=== PATIENT | female | born 1965 | race Hispanic/Latino ===

== ENCOUNTER 2016-11-04 20:34 | Inpatient (IN) | payer MEDICAID, OTHER ==
[~2016-11-04 20:34] MED LIST: Naloxone 0.4 mg/ml Inj (Adult) IVP ONE
[2016-11-04] MEDS ORDERED: Naloxone 0.4 mg/ml Inj (Adult) ONE (20:48)
[2016-11-04] MEDS ORDERED: Sodium Chloride 0.9% 1,000 ML IV ONE ×2 (20:54→22:30)
[2016-11-04 21:00] LABS: DRAW SITE VB; VENOUS BLOOD GAS BASE EXCESS 0.5 mmol/L (0.0-2.0); VENOUS BLOOD GAS PCO2 41 mmHg (40-60)
[2016-11-04] MEDS ORDERED: Sodium Chloride 0.9% 250 ML IV ONE (21:00)
[2016-11-04 21:06] LABS: BASO # 0.1 K/uL (0.0-0.2); EOS % 0.1 % (0.0-4.0); HEMATOCRIT 50.5 % (34.0-47.0); LYMPH # 2.6 K/uL (1.0-4.3); LYMPH % 24.6 % (20.0-40.0); MEAN CELL VOLUME 89.8 fL (81.0-99.0); MEAN CORPUSCULAR HEMOGLOBIN 29.1 pg (27.0-31.0); MEAN CORPUSCULAR HGB CONC 32.4 g/dL (33.0-37.0); MEAN PLATELET VOLUME 7.4 fL (7.2-11.7); MONO % 9.1 % (0.0-10.0); RED CELL DISTRIBUTION WIDTH 17.9 % (11.5-14.5); WHITE BLOOD COUNT 10.7 K/uL (4.8-10.8)
--- NOTE | 2016-11-04 21:16 | C.PDOC ---
History Of Present Illness 53 y/o female presents to ED via ALS for suspected opiate and alcohol overdose. Ambulance was called by her partner, with whom she was drinking alcohol and doing heroin with fentanyl. Patient received multiple large doses of Narcan prior to arrival. As per ALS, patient initially apneic with pinpoint pupils, jones and mottled extremities - patient began vomiting, with more dilated pupils after Narcan given. Chief Complaint (Nursing): Substance Abuse History Per: EMS History/Exam Limitations: clinical condition Onset/Duration Of Symptoms: Unknown Modifying Factor(s): Alcohol, Narcotics Past Medical History Reviewed: Historical Data, Nursing Documentation, Vital Signs Vital Signs: Last Vital Signs Temp 97.8 F 11/04/16 21:23 Pulse 96 H 11/04/16 23:14 Resp 20 11/04/16 23:14 BP 155/89 H 11/04/16 23:14 Pulse Ox 100 11/04/16 23:14 Family History: States: Unknown Family Hx - Social History Hx Alcohol Use: (unknown) Hx Substance Use: (unknown) - Immunization History Hx Tetanus Toxoid Vaccination: No Hx Influenza Vaccination: No Hx Pneumococcal Vaccination: No Review Of Systems Review Of Systems: ROS cannot be obtained secondary to pt's inabilty to answer questions. Physical Exam - Physical Exam Appears: Other (not awake, not responsive to painful stimulus) Skin: Warm, Dry Head: Atraumatic Eye(s): bilateral: Other (midsize, sluggish pupils) Neck: Supple Chest: Symmetrical Cardiovascular: Rhythm Regular Respiratory: Normal Breath Sounds, No Rales, No Rhonchi, No Wheezing Gastrointestinal/Abdominal: Soft, No Tenderness Neurological/Psych: No Response To Commands ED Course And Treatment - Laboratory Results Result Diagrams: 11/04/16 21:10 11/04/16 21:25 Lab Interpretation: Abnormal (ETOH 521 H) ECG: Interpreted By Me ECG Rhythm: Sinus Tachycardia ECG Interpretation: Abnormal Rate From EC O2 Sat by Pulse Oximetry: 100 (RA) Pulse Ox Interpretation: Normal - Radiology CXR: Interpreted by Me CXR Interpretation: Yes: No Acute Disease Progress Note: CT HEAD, EKG, CxR, Labs ordered. IVFs and Narcan 2mg IVP given in ER. Reevaluation Time: 23:59 Reassessment Condition: Improved (awake, alert, gave her name and interacting w staff) - Physician Consult Information Outcome Of Conversation: 0000: d/w Dr. Mckenna, then Dr. Stephens- Hospitalist Medical Charge Entry Specialist- ok to Tele Obs. Critical Care Time - Critical Care Note Total Time (in mins): 90 Documented critical care: time excludes all time spent performing seperately billable procedures. Medical Decision Making Medical Decision Making: accidental heroine and alcohol overdose requiring large dose narcan doses, now stable. pt awake and alert with alcohol level > 500 Disposition Doctor Will See Patient In The: Hospital Counseled Patient/Family Regarding: Studies Performed, Diagnosis - Disposition Disposition: HOSPITALIZED Disposition Time: 00:01 Condition: FAIR - Clinical Impression Clinical Impression: Alcohol abuse, Heroin overdose - Scribe Statement The provider has reviewed the documentation as recorded by the Shaka Simpson Provider Scribe Attestation: All medical record entries made by the Ananthibmerlin were at my direction and personally dictated by me. I have reviewed the chart and agree that the record accurately reflects my personal performance of the history, physical exam, medical decision making, and the department course for this patient. I have also personally directed, reviewed, and agree with the discharge instructions and disposition.
[2016-11-04 21:18] LABS: RBC URINE < 1 /hpf (0-3); URINE BACTERIA FEW (<OCC); URINE BILIRUBIN NEGATIVE (NEGATIVE); URINE BLOOD 2+ (NEGATIVE); URINE COLOR Yellow (YELLOW); URINE GLUCOSE (UA) 1+ mg/dL (Normal); URINE KETONE NEGATIVE (NEGATIVE); URINE LEUKOCYTE ESTERASE NEG Leu/uL (Negative); URINE PROTEIN 2+ mg/dL (NEGATIVE); URINE UROBILINOGEN NORMAL mg/dL (0.2-1.0); WBC URINE 3 /hpf (0-5)
[2016-11-04 21:56] LABS: CHLORIDE 100 mmol/L (98-107); POTASSIUM 3.9 mmol/L (3.6-5.2); SODIUM 142 mmol/L (132-148)
[2016-11-04 21:58] LABS: GFR AFRICAN-AMERICAN > 60
[2016-11-04 21:59] LABS: ALB/GLOB RATIO 1.3 (1.0-2.1); ALKALINE PHOSPHATASE 63 U/L (38-126); ALT/SGPT 94 U/L (9-52); AST/SGOT 121 U/L (14-36); BILIRUBIN,TOTAL 0.5 mg/dL (0.2-1.3); BLOOD UREA NITROGEN 11 mg/dL (7-17); CALCIUM 8.2 mg/dl (8.6-10.4); CARBON DIOXIDE 26 mmol/L (22-30); GLUCOSE,RANDOM 136 mg/dL (65-105); TOTAL PROTEIN 7.4 g/dL (6.3-8.3)
[2016-11-04 22:15] LABS: ALCOHOL SERUM 521 mg/dl (0-10)
[2016-11-04] MEDS ORDERED: Sodium Chloride 0.9% 1,000 ML ONE (22:28)
[2016-11-04 23:38] LABS: ABG ALLEN TEST POS; DRAW SITE RR
--- NOTE | 2016-11-05 00:56 | CP.PCM.HP ---
Addendum entered and electronically signed by Prosper Covarrubias DO 11/05/16 02:21: CT HEAD: no evidence of hemorrhage, mass effect, or subacute infarction (wet read, f/u official read) Original Note: <Prosper Covarrubias - Last Filed: 11/05/16 02:17> History of Present Illness - History of Present Illness History of Present Illness: HPI: The patient is a 51 y/o female w/ PMhx of hypertension presenting to the ED w/ heroin overdose. The patient was snorting heroin and drinking beer with her partner when she overdosed. Her partner called 911 and the ambulance transported her to [facility] ED. She was apneic, had pinpoint pupils, and jones- mottled extremities initially in the ED. She received multiples large doses of naloxone and 2L of NS. After administration of naloxone, she began vomiting and her pupils dilated. Currently the patient is agitated, anxious, and diaphoretic ; she is asking for methadone. On review of systems, the patient reports diaphoresis, a racing heart, and anxiety. She denies fever/chills, headaches, vision/hearing changes, sore throat, dysphagia, chest pain, shortness of breath , cough, abdominal pain, nausea, and vomiting. Head CT and CXR are pending. PMHx: hypertension PSHx: denies FamHx: denies SocHx: The patient reports that she smokes about 5 cigarettes/day. She also drinks approximately 4 twelve oz beers/day, for the last 5 years. She admits to heroin use of 6 months duration, with the last use being earlier today. Typically she uses 4 bags of heroin/day. Method of administration is snorting. She denies IVDA. Pt denies previous rehab. Allergies: no known drug allergies Present on Admission - Present on Admission Any Indicators Present on Admission: No Review of Systems - Review of Systems Systems not reviewed;Unavailable: Intoxicated - Constitutional Constitutional: absent: Chills, Fever - EENT Eyes: absent: Change in Vision Ears: absent: Decreased Hearing Nose/Mouth/Throat: Nasal Discharge. absent: Sore Throat - Cardiovascular Cardiovascular: absent: Chest Pain, Chest Pain at Rest, Dyspnea, Dyspnea on Exertion, Edema - Respiratory Respiratory: absent: Cough, Dyspnea - Gastrointestinal Gastrointestinal: Nausea, Vomiting. absent: Abdominal Pain - Genitourinary Genitourinary: absent: Dysuria - Musculoskeletal Musculoskeletal: Back Pain Additional comments: Body aches (whole body is in pain) - Integumentary Integumentary: Other (feels crawling sensation/parsthesias on skin) - Neurological Neurological: absent: Numbness, Headaches, Weakness - Psychiatric Psychiatric: Anxiety. absent: Depression - Endocrine Endocrine: absent: Polydipsia, Polyphagia, Polyuria Past Patient History - Infectious Disease Hx of Infectious Diseases: None - Past Social History Smoking Status: Unknown If Ever Smoked - PSYCHIATRIC Hx Substance Use: (unknown) - ANESTHESIA Hx Anesthesia: No Meds Allergies/Adverse Reactions: Allergies Allergy/AdvReac Type Severity Reaction Status Date / Time No Known Allergies Allergy Unverified 11/05/16 04:36 Physical Exam - Constitutional Appears: Older Than Stated Age - Head Exam Head Exam: ATRAUMATIC, NORMOCEPHALIC - Eye Exam Eye Exam: PERRL Additional comments: dilated pupils - ENT Exam ENT Exam: Mucous Membranes Dry - Respiratory Exam Respiratory Exam: Clear to Auscultation Bilateral, NORMAL BREATHING PATTERN. absent: Rales, Rhonchi, Wheezes - Cardiovascular Exam Cardiovascular Exam: Tachycardia, +S1, +S2 - GI/Abdominal Exam GI & Abdominal Exam: Normal Bowel Sounds, Soft. absent: Tenderness - Extremities Exam Extremities exam: Negative for: pedal edema - Back Exam Back exam: absent: CVA tenderness (L), CVA tenderness (R) - Neurological Exam Neurological exam: Alert, Oriented x3 - Psychiatric Exam Psychiatric exam: Anxious - Skin Skin Exam: Dry, Normal Color, Warm Additional comments: no track quevedo or injection sites noted Results - Vital Signs Recent Vital Signs: Last Vital Signs Temp 97.8 F 11/04/16 21:23 Pulse 96 H 11/04/16 23:14 Resp 20 11/04/16 23:14 BP 155/89 H 11/04/16 23:14 Pulse Ox 100 11/05/16 00:01 - Labs Result Diagrams: 11/04/16 21:10 11/04/16 21:25 Assessment & Plan - Assessment and Plan (Free Text) Assessment: 51 year old female, PMHx of HTN, who presents unresponsive after heroin/ fentanyl and alcohol use. Pt responded after administration of Narcan. She is requesting detox. Plan: AMS unresponsive on admission Administer Narcan and pt responsive f/u CT Head f/u CXR EtOH Use disorder, severe EtOH level on presentation: 521 pt admits 4-8 12oz beers daily, + "whatever vodka I can get" Seizure precautions Aspiration/Fall precautions Alcohol W/D assessments Q1H Neuro Check Q4H Banana Bag @ 100cc/hr Zofran 4mg IV Q6H PRN Opioid Use Disorder, Severe Unresponsive on presentation Administer Narcan and pt responsive 4-5 bags per day of heroin (snorting, deny IVDA) mixed with fentanyl Pt requesting detox Psych consult: Dr. León, help appreciated - f/u reccs Tobacco use disorder 4-6 cigarettes per day pt refusing patch HTN pt denies home medications Apresoline 10mg given once in ED Monitor Transaminitis Secondary to alcohol use AST/ALT 121/94 Monitor Abnormal UA UA (11/04/16): Blood 2+, Protein 2+, Le negative, Nitrate positive Will repeat Prophylaxis VTE: SCDs, Heparin 5000 units Q12H GI: Protonix 40mg IV daily Heart Healthy diet <Tate Stephens - Last Filed: 11/05/16 06:32> Results - Vital Signs Recent Vital Signs: Last Vital Signs Temp 98.2 F 11/05/16 05:41 Pulse 110 H 11/05/16 06:15 Resp 21 11/05/16 06:15 BP 147/96 H 11/05/16 06:15 Pulse Ox 99 11/05/16 06:15 - Labs Result Diagrams: 11/05/16 04:52 11/05/16 04:52 Labs: Laboratory Results - last 24 hr 11/05/16 11/05/16 04:52 04:52 WBC 11.4 H RBC 5.09 Hgb 14.9 Hct 45.2 MCV 88.9 MCH 29.2 MCHC 32.9 L RDW 17.6 H Plt Count 323 MPV 7.3 Neut % (Auto) 77.4 H Lymph % (Auto) 15.6 L [place] % (Auto) 6.5 Eos % (Auto) 0.0 Baso % (Auto) 0.5 Neut # 8.8 H Lymph # 1.8 [place] # 0.7 Eos # 0.0 Baso # 0.1 Sodium 141 Potassium 4.0 Chloride 103 Carbon Dioxide 28 Anion Gap 15 BUN 10 Creatinine 0.6 L Est GFR ( Amer) > 60 Est GFR (Non-Af Amer) > 60 Random Glucose 167 H Calcium 7.8 L Phosphorus 3.5 Magnesium 1.8 Total Bilirubin 0.4 AST 76 H D ALT 86 H Alkaline Phosphatase 55 Total Protein 6.6 Albumin 3.8 Globulin 2.8 Albumin/Globulin Ratio 1.3 Assessment & Plan - Date & Time Date: 11/05/16 (I have seen and examined the patient. I agree with the findings and plan of care as documented by Dr. Covarrubias. Patient with acute change in mental status. Abuse of alcohol and opiates. Received Narcan in ED. Mental status improved. Consult to psych. CIWA protocol. Plan to start methadone. No withdrawal symptoms present. Monitor for acute changes.) Time: 06:30 Attending/Attestation - Attestation I have personally seen and examined this patient.: Yes I have fully participated in the care of the patient.: Yes I have reviewed all pertinent clinical information: Yes
[2016-11-05] MEDS ORDERED: Multivitamin (MVI) 10 ML, Thiamine 100 MG, Folic Acid 1 MG in Sodium Chloride 0.9% 1,00... IV ONE ×2 (01:43→21:48)
[2016-11-05 05:01] LABS: BASO # 0.1 K/uL (0.0-0.2); BASO % 0.5 % (0.0-2.0); HEMATOCRIT 45.2 % (34.0-47.0); LYMPH # 1.8 K/uL (1.0-4.3); LYMPH % 15.6 % (20.0-40.0); MEAN CELL VOLUME 88.9 fL (81.0-99.0); MEAN CORPUSCULAR HEMOGLOBIN 29.2 pg (27.0-31.0); MEAN CORPUSCULAR HGB CONC 32.9 g/dL (33.0-37.0); MEAN PLATELET VOLUME 7.3 fL (7.2-11.7); MONO # 0.7 K/uL (0.0-0.8); MONO % 6.5 % (0.0-10.0); RED CELL DISTRIBUTION WIDTH 17.6 % (11.5-14.5); WHITE BLOOD COUNT 11.4 K/uL (4.8-10.8)
[2016-11-05 05:17] LABS: CHLORIDE 103 mmol/L (98-107); SODIUM 141 mmol/L (132-148)
[2016-11-05 05:19] LABS: AST/SGOT 76 U/L (14-36); BILIRUBIN,TOTAL 0.4 mg/dL (0.2-1.3); GFR AFRICAN-AMERICAN > 60
[2016-11-05 05:20] LABS: ALB/GLOB RATIO 1.3 (1.0-2.1); ALKALINE PHOSPHATASE 55 U/L (38-126); ALT/SGPT 86 U/L (9-52); BLOOD UREA NITROGEN 10 mg/dL (7-17); CALCIUM 7.8 mg/dl (8.6-10.4); CARBON DIOXIDE 28 mmol/L (22-30); GLUCOSE,RANDOM 167 mg/dL (65-105); PHOSPHOROUS 3.5 mg/dL (2.5-4.5); TOTAL PROTEIN 6.6 g/dL (6.3-8.3)
[2016-11-05 05:21] LABS: MAGNESIUM 1.8 mg/dL (1.6-2.3)
--- NOTE | 2016-11-05 08:21 | CT ---
PROCEDURE: CT HEAD WITHOUT CONTRAST. HISTORY: change of mental status COMPARISON: None available. TECHNIQUE: Axial computed tomography images were obtained through the head/brain without intravenous contrast. Radiation dose: Total exam DLP = 740 mGy-cm. This CT exam was performed using one or more of the following dose reduction techniques: Automated exposure control, adjustment of the mA and/or kV according to patient size, and/or use of iterative reconstruction technique. FINDINGS: HEMORRHAGE: No intracranial hemorrhage. BRAIN: Scattered focal lucencies in the subcortical and periventricular white matter suggestive for chronic microvascular ischemic change. Mild atrophy. VENTRICLES: Unremarkable. No hydrocephalus. CALVARIUM: Unremarkable. PARANASAL SINUSES: Unremarkable as visualized. No significant inflammatory changes. MASTOID AIR CELLS: Unremarkable as visualized. No inflammatory changes. OTHER FINDINGS: Atherosclerosis of the vertebral arteries and cavernous carotid arteries. IMPRESSION: Mild atrophy. Chronic microvascular ischemic change. Atherosclerosis of the vertebral arteries and cavernous carotid arteries. If focal neurologic deficit persists, consider MRI. These findings were preliminarily reported at 12:26 a.m. on 11/05/[address] Laurence Boone from [facility].
--- NOTE | 2016-11-05 09:32 | RAD ---
HISTORY: change of mental status COMPARISON: No prior. FINDINGS: LUNGS: No active pulmonary disease. PLEURA: No significant pleural effusion identified, no pneumothorax apparent. CARDIOVASCULAR: Normal. OSSEOUS STRUCTURES: No significant abnormalities. VISUALIZED UPPER ABDOMEN: Normal. OTHER FINDINGS: None. IMPRESSION: No active disease.
--- NOTE | 2016-11-05 17:11 | PCM.PSYCH ---
Initial Psychiatric Evaluation - Initial Psychiatric Evaluation Type of Admission: Voluntary Legal Status: Capacity Chief Complaint (in patient's own words): I came here to get help. History of Present Illness and Precipitating Events: This is a 51-year-old female who is lives with her boyfriend and unemployed with a long history of alcohol dependence, opioid dependence and anxiety disorder was admitted in the ICU because of a suspected overdose. Today patient was consulted because of history of alcohol and opiate overdose. Patient states a long history of drinking and abusing opiate pain medications. Since past few months she is drinking heavily and sniffing increasing amount of heroin. The patient reports of drinking 5-6 shots of vodka and 4-5 24oz beers, on a daily basis. Yesterday she consumed 4 pints of vodka, with 5 24oz beers, and abused 6 bags of heroin, became unconscious, boyfriend called the ambulance and patient was escorted to the hospital. Patient was given naloxone and was admitted in the ICU. Today patient reports of withdrawal symptoms including shakes, sweating, anxiety and headaches. Patient reports anxiety and irritable mood but denies any feelings of hopelessness or helplessness. She reports that she overdosed accidentally on heroin and denies any suicidal ideation or any attempt. She denies any auditory or visual hallucinations or any psychotic symptoms. She denies any other substance abuse. Past medical history Hypertension Current Medications: Active Medications Generic Name Dose Route Start Last Admin Trade Name Freq PRN Reason Stop Dose Admin Chlordiazepoxide 25 mg 11/05/16 12:00 11/05/16 12:34 Librium PO 11/09/16 11:59 25 mg Q6 TAMICA Administration Taper Clonidine HCl 0.1 mg 11/05/16 14:00 11/05/16 16:59 Catapres PO 0.1 mg TID TAMICA Administration Heparin Sodium (Porcine) 5,000 units 11/05/16 10:00 11/05/16 09:09 Heparin SC 5,000 units Q12H TAMICA Administration Lorazepam 1 mg 11/05/16 01:43 11/05/16 16:59 Ativan IVP 1 mg Q4H PRN Administration Symptoms of alcohol withdrawl Nicotine 1 patch 11/05/16 13:15 11/05/16 14:19 Nicoderm Cq TD 1 patch DAILY TAMICA Administration Pantoprazole Sodium 40 mg 11/05/16 10:00 11/05/16 09:09 Protonix Inj IVP 40 mg DAILY TAMICA Administration Pneumococcal Polyvalent Vaccine 0.5 ml 11/07/16 11:18 Pneumovax 23 Vaccine IM 11/07/16 11:19 .ONCE ONE Past Psychiatric History - Past Psychiatric History Previous Treatment History: None Pertinent Medical Hx (Current Medical&Sleep Prob, Allergies): Allergies Allergy/AdvReac Type Severity Reaction Status Date / Time No Known Allergies Allergy Unverified 11/05/16 04:36 Methadone [Methadone HCl] 20 mg PO DAILY 11/05/16 Review of Systems - Review of Systems All systems: reviewed and no additional remarkable complaints except - Psychiatric Psychiatric: Anxiety, Irritability Mental Status Examination - Personal Presentation Personal Presentation: Looks stated age - Affect Affect: Constricted - Motor Activity Motor Activity: Calm - Reliability in Providing Information Reliability in Providing Information: Good - Speech Speech: Organized - Mood Mood: Anxious - Formal Thought Process Formal Thought Process: No Impairment - Obsessions/Compulsions Obsessions: No Compulsions: No - Cognitive Functions Orientation: Person, Place, Situation, Time Sensorium: Alert Attention/Concentration: Attentive Abstract Thinking: [place] Estimate of Intelligence: Below average Judgement: Imparied, as evidence by: Poor judgement, Intact, as evidence by: Insight regarding need for hospitalization - Risk Risk: Withdrawal, Diminished functioning - Strength & Assets Inventory Strength & Assets Inventory: Family support, Cooperative DSM 5 DX - DSM 5 DSM 5 Diagnosis: Opiate use disorder severe Opiate withdrawal Alcohol use disorder severe Alcohol withdrawal uncomplicated Anxiety disorder - Recommended/Plan of Treatment Treatment Recommendations and Plan of Treatment: Alcohol use disorder severe CBT Psychoeducation Supportive therapy, individual therapy Use [place] for abstinence Alcohol withdrawal uncomplicated CBT Psychoeducation Supportive therapy, individual therapy Librium/Ativan when necessary Librium taper Folic acid/thiamine/multivitamin Opioid use disorder severe CBT Psychoeducation Supportive therapy, individual therapy Use [place] for abstinence Opioid withdrawal CBT Psychoeducation Supportive therapy, individual therapy Clonidine when necessary Methadone taper Anxiety disorder CBT Psychoeducation Supportive therapy, group therapy, individual therapy Neurontin 100 mg by mouth 3 times a day - Smoking Cessation Smoking Cessation Initiated: No
--- NOTE | 2016-11-05 22:07 | CP.PCM.PN ---
<MatthiashanJad - Last Filed: 11/06/16 08:58> Subjective - Date & Time of Evaluation Date of Evaluation: 11/05/16 Time of Evaluation: 10:54 - Subjective Subjective: Pt seen and examined. Pt reported that she is feeling better today. Pt reports slight abdominal pain. Pt tolerating diet. Pt denies any fever, chills, chest pain, shortness of breath. Objective - Vital Signs/Intake and Output Vital Signs (last 24 hours): Temp Pulse Resp BP Pulse Ox 98.2 F 114 H 14 177/83 H 99 11/05/16 09:06 11/05/16 09:06 11/05/16 09:06 11/05/16 09:06 11/05/16 09:06 - Medications Medications: Current Medications Chlordiazepoxide (Librium) 25 mg PO Q6 [facility] PRN Reason: Taper Stop: 11/09/16 11:59 Last Admin: 11/05/16 18:08 Dose: 25 mg Clonidine HCl (Catapres) 0.1 mg PO TID [facility] Last Admin: 11/05/16 16:59 Dose: 0.1 mg Heparin Sodium (Porcine) (Heparin) 5,000 units SC Q12H TAMICA Last Admin: 11/05/16 21:28 Dose: 5,000 units Multivitamins/Vitamin C 10 ml/Thiamine HCl 100 mg/ Folic Acid 1 mg/ Sodium Chloride 1,011.2 mls @ 100 mls/hr IV .Q10H7M ONE Stop: 11/06/16 07:54 Lorazepam (Ativan) 1 mg IVP Q4H PRN PRN Reason: Symptoms of alcohol withdrawl Last Admin: 11/05/16 21:27 Dose: 1 mg Methadone HCl (Methadone) 0 mg PO DAILY [facility] PRN Reason: Taper Stop: 11/09/16 09:59 Nicotine (Nicoderm Cq) 1 patch TD DAILY [facility] Last Admin: 11/05/16 14:19 Dose: 1 patch Pantoprazole Sodium (Protonix Inj) 40 mg IVP DAILY [facility] Last Admin: 11/05/16 09:09 Dose: 40 mg Pneumococcal Polyvalent Vaccine (Pneumovax 23 Vaccine) 0.5 ml IM .ONCE ONE Stop: 11/07/16 11:19 - Labs Labs: 11/05/16 04:52 11/05/16 04:52 - Constitutional Appears: No Acute Distress, Unkempt - Head Exam Head Exam: ATRAUMATIC, NORMOCEPHALIC - Eye Exam Eye Exam: EOMI, PERRL - ENT Exam ENT Exam: Mucous Membranes Moist. absent: Mucous Membranes Dry - Respiratory Exam Respiratory Exam: Clear to Ausculation Bilateral. absent: Rales, Rhonchi, Wheezes - Cardiovascular Exam Cardiovascular Exam: +S1, +S2 - GI/Abdominal Exam GI & Abdominal Exam: Soft. absent: Tenderness - Extremities Exam Extremities Exam: Full ROM. absent: Pedal Edema - Neurological Exam Neurological Exam: Alert, Awake, Oriented x3 - Psychiatric Exam Psychiatric exam: Normal Affect, Normal Mood - Skin Skin Exam: Normal Color, Warm Assessment and Plan - Assessment and Plan (Free Text) Assessment: Alcohol Use Disorder and Withdrawal Serum alcohol, 521 Librium taper Ativan 1 mg IV q4h prn for withdrawal symptoms Seizure precautions Aspiration/Fall precautions Alcohol W/D assessments Q1H Neuro Check Q4H Banana Bag IVF 100cc/hr Zofran 4mg IV Q6H PRN Psych, Dr. Boo, consulted. Help appreciated. Opioid Use Disorder and Withdrawal Psych, Dr. Boo, consulted. Help appreciated. Methadone taper as per psych HTN: Clonidine 0.1 mg po tid Transaminitis Secondary to alcohol use AST/ALT 121/94 Monitor Abnormal UA U/A: positive for nitrates, bacteria Prophylaxis DVT: SCDs, Heparin 5000 units Q12H GI: Protonix 40mg IV daily Nicotine patch <Colton Abbasi - Last Filed: 12/10/16 16:32> Objective - Vital Signs/Intake and Output Vital Signs (last 24 hours): Temp Pulse Resp BP Pulse Ox 97.6 F 73 18 120/80 98 11/09/16 09:27 11/09/16 09:27 11/09/16 09:27 11/09/16 09:27 11/06/16 16:00 - Labs Labs: 11/09/16 12:08 11/09/16 12:08 Attending/Attestation - Attestation I have personally seen and examined this patient.: Yes I have fully participated in the care of the patient.: Yes I have reviewed all pertinent clinical information, including history, physical exam and plan: Yes Notes (Text): Patient Seen and examined with the resident. Agree with the resident's evaluation, assessment and plan. Alcohol Use Disorder and Withdrawal Serum alcohol, 521 Librium taper Ativan 1 mg IV q4h prn for withdrawal symptoms Seizure precautions Aspiration/Fall precautions Alcohol W/D assessments Q1H Neuro Check Q4H Banana Bag IVF 100cc/hr Zofran 4mg IV Q6H PRN Psych, Dr. Boo, consulted. Help appreciated. Opioid Use Disorder and Withdrawal Psych, Dr. Boo, consulted. Help appreciated. Methadone taper as per psych HTN: Clonidine 0.1 mg po tid
--- NOTE | 2016-11-05 23:32 | CARD ---
APPROVED REPORT EKG Measurement Heart [id number] <Conclusion> Poor data quality, interpretation may be adversely affected Sinus tachycardia Possible Left atrial enlargement Anteroseptal infarct, age undetermined Abnormal ECG
[2016-11-06 06:57] LABS: CHLORIDE 103 mmol/L (98-107); POTASSIUM 3.7 mmol/L (3.6-5.2); SODIUM 136 mmol/L (132-148)
[2016-11-06 06:59] LABS: BILIRUBIN,TOTAL 0.7 mg/dL (0.2-1.3); CARBON DIOXIDE 28 mmol/L (22-30); GFR AFRICAN-AMERICAN > 60
[2016-11-06 07:00] LABS: ALB/GLOB RATIO 1.1 (1.0-2.1); ALKALINE PHOSPHATASE 41 U/L (38-126); ALT/SGPT 55 U/L (9-52); AST/SGOT 51 U/L (14-36); BLOOD UREA NITROGEN 9 mg/dL (7-17); CALCIUM 7.2 mg/dl (8.6-10.4); GLUCOSE,RANDOM 68 mg/dL (65-105); MAGNESIUM 1.9 mg/dL (1.6-2.3); PHOSPHOROUS 3.3 mg/dL (2.5-4.5); TOTAL PROTEIN 5.5 g/dL (6.3-8.3)
[2016-11-06 07:07] LABS: BASO % 0.4 % (0.0-2.0); EOS # 0.1 K/uL (0.0-0.7); LYMPH # 2.1 K/uL (1.0-4.3); NRBC % 0.1 % (0.0-2.0)
[2016-11-06 07:23] LABS: EOS % 1.7 % (0.0-4.0); HEMATOCRIT 34.2 % (34.0-47.0); LYMPH % 29.1 % (20.0-40.0); MEAN CELL VOLUME 89.6 fL (81.0-99.0); MEAN CORPUSCULAR HEMOGLOBIN 29.1 pg (27.0-31.0); MEAN CORPUSCULAR HGB CONC 32.4 g/dL (33.0-37.0); MEAN PLATELET VOLUME 8.1 fL (7.2-11.7); MONO # 0.5 K/uL (0.0-0.8); MONO % 6.6 % (0.0-10.0); RED CELL DISTRIBUTION WIDTH 16.9 % (11.5-14.5); WHITE BLOOD COUNT 7.2 K/uL (4.8-10.8)
--- NOTE | 2016-11-06 11:16 | PCM.PYCHPN ---
Psychiatric Progress Note - Psychiatric Progress Note Patient seen today, length of contact: 17 min Patient Chief Complaint: I came here to get help. Problems Identified/Issues Discussed: Patient seen and evaluated, chart reviewed and discussed with the nurse. As per the staff, patient still appears isolated, anxious and withdrawn. Patient still reports anxiety and reports withdrawal symptoms including cramps, back pain and sweating. However she denies any suicidal ideation or homicidal ideation. She denies any auditory or visual hallucinations or any psychotic symptoms. Supportive therapy and psychoeducation were given. Medication Change: Yes (Methadone taper) Medical Record Reviewed: Yes Mental Status Examination - Cognitive Function Orientation: Person, Place, Situation, Time Memory: Intact Attention: WNL Concentration: Poor Association: WNL Fund of Knowledge: Poor - Mood Mood: Anxious - Affect Affect: Constricted - Speech Speech: Soft - Formal Thought Process Formal Thought Process: No Impairment - Suicidal Ideation Suicidal Ideation: No - Homicidal Ideation Homicidal Ideation: No Goal/Treatment Plan - Goal/Treatment Plan Need for Continued Stay: Discharge may exacerbated symptoms, Severe functional impairment, Other Progress Toward Problem(s) and Goals/Treatment Plan: Alcohol use disorder severe CBT Psychoeducation Supportive therapy, individual therapy Use [place] for abstinence Alcohol withdrawal uncomplicated CBT Psychoeducation Supportive therapy, individual therapy Librium/Ativan when necessary Librium taper Folic acid/thiamine/multivitamin Opioid use disorder severe CBT Psychoeducation Supportive therapy, individual therapy Use [place] for abstinence Opioid withdrawal CBT Psychoeducation Supportive therapy, individual therapy Clonidine when necessary Methadone taper Anxiety disorder CBT Psychoeducation Supportive therapy, group therapy, individual therapy Neurontin 100 mg by mouth 3 times a day - Smoking Cessation Smoking Cessation Initiated: No
--- NOTE | 2016-11-06 17:13 | CP.PCM.PN ---
<Zeb Lovekan - Last Filed: 11/13/16 10:27> Subjective - Date & Time of Evaluation Date of Evaluation: 11/05/16 Time of Evaluation: 07:44 - Subjective Subjective: Pt seen and examined. Pt reports that her withdrawal symptoms have subsided. Pt reports minor mouth pain. Pt denies fever, chills, chest pain, shortness of breath, nausea, and vomiting. Objective - Vital Signs/Intake and Output Vital Signs (last 24 hours): Temp Pulse Resp BP Pulse Ox 98.7 F 78 15 108/61 99 11/05/16 16:00 11/06/16 03:00 11/05/16 23:00 11/05/16 23:00 11/05/16 23:00 - Medications Medications: Current Medications Chlordiazepoxide (Librium) 25 mg PO TID [facility] PRN Reason: Taper Stop: 11/09/16 11:59 Last Admin: 11/06/16 14:56 Dose: 25 mg Clonidine HCl (Catapres) 0.1 mg PO TID [facility] Last Admin: 11/06/16 14:56 Dose: 0.1 mg Heparin Sodium (Porcine) (Heparin) 5,000 units SC Q12H [facility] Last Admin: 11/06/16 10:22 Dose: 5,000 units Ibuprofen (Motrin Tab) 600 mg PO TID PRN PRN Reason: Pain, moderate (4-7) Last Admin: 11/06/16 14:57 Dose: 600 mg Lidocaine HCl (Lidocaine 2% Viscous) 15 ml PO Q6H PRN PRN Reason: toothache Lorazepam (Ativan) 1 mg IVP Q4H PRN PRN Reason: Symptoms of alcohol withdrawl Last Admin: 11/06/16 13:46 Dose: 1 mg Methadone HCl (Methadone) 15 mg PO DAILY [facility] PRN Reason: Taper Stop: 11/09/16 09:59 Last Admin: 11/06/16 10:21 Dose: 15 mg Nicotine (Nicoderm Cq) 1 patch TD DAILY [facility] Last Admin: 11/06/16 10:22 Dose: 1 patch Pantoprazole Sodium (Protonix Inj) 40 mg IVP DAILY [facility] Last Admin: 11/06/16 10:21 Dose: 40 mg Pneumococcal Polyvalent Vaccine (Pneumovax 23 Vaccine) 0.5 ml IM .ONCE ONE Stop: 11/07/16 11:19 - Constitutional Appears: No Acute Distress - Head Exam Head Exam: ATRAUMATIC, NORMOCEPHALIC - Eye Exam Eye Exam: EOMI - ENT Exam ENT Exam: Mucous Membranes Moist. absent: Mucous Membranes Dry - Respiratory Exam Respiratory Exam: Clear to Ausculation Bilateral. absent: Rales, Rhonchi, Wheezes - Cardiovascular Exam Cardiovascular Exam: +S1, +S2. absent: Gallop, Rubs - GI/Abdominal Exam GI & Abdominal Exam: Soft, Normal Bowel Sounds. absent: Distended, Tenderness - Extremities Exam Extremities Exam: Full ROM. absent: Pedal Edema - Neurological Exam Neurological Exam: Alert, Awake, Oriented x3 - Psychiatric Exam Psychiatric exam: Normal Affect, Normal Mood - Skin Skin Exam: Normal Color, Warm Assessment and Plan - Assessment and Plan (Free Text) Assessment: Alcohol Use Disorder and Withdrawal Serum alcohol, 521 Librium taper Ativan 1 mg IV q4h prn for withdrawal symptoms Seizure precautions Aspiration/Fall precautions Alcohol W/D assessments Q1H Neuro Check Q4H Zofran 4mg IV Q6H PRN Psych, Dr. Boo, consulted. Help appreciated. Opioid Use Disorder and Withdrawal Psych, Dr. Boo, consulted. Help appreciated. Methadone taper as per psych Tooth Abscess: Augmentin 875/125 mg po bid Follow up with dentist recommended HTN: Clonidine 0.1 mg po tid Transaminitis Secondary to alcohol use AST/ALT 121/94 Monitor Abnormal UA U/A: positive for nitrates, bacteria Prophylaxis DVT: SCDs, Heparin 5000 units Q12H GI: Protonix 40mg IV daily Nicotine patch <Colton Abbasi - Last Filed: 12/16/16 11:24> Objective - Vital Signs/Intake and Output Vital Signs (last 24 hours): Temp Pulse Resp BP Pulse Ox 97.6 F 73 18 120/80 98 11/09/16 09:27 11/09/16 09:27 11/09/16 09:27 11/09/16 09:27 11/06/16 16:00 - Labs Labs: 11/09/16 12:08 11/09/16 12:08 Attending/Attestation - Attestation I have personally seen and examined this patient.: Yes I have fully participated in the care of the patient.: Yes I have reviewed all pertinent clinical information, including history, physical exam and plan: Yes Notes (Text): Patient seen and examined with the resident. Agree with the resident's evaluation, assessment and plan. Alcohol Use Disorder and Withdrawal Opioid Use Disorder and Withdrawal Tooth Abscess: Augmentin 875/125 mg po bid Follow up with dentist strongly recommended Patient agrees to do so as outpatient. HTN:
[2016-11-06 17:38] VITALS: O2SAT 98
[2016-11-07] MEDS: Pantoprazole 40 mg EC Tab PO SCH (09:38)
--- NOTE | 2016-11-07 10:00 | PCM.PYCHPN ---
Psychiatric Progress Note - Psychiatric Progress Note Patient seen today, length of contact: 15 min Patient Chief Complaint: I'm still having withdrawal symptoms Problems Identified/Issues Discussed: Patient seen and evaluated, chart reviewed and discussed with the nurse. Patient was transferred to the psych floor. Patient still reports anxiety and irritability. She is also reporting withdrawal symptoms including nausea, cramps , back pain and joint pains. However she denies any suicidal ideation or homicidal ideation. She is reporting drowsiness from Neurontin and requesting to change the medication Supportive therapy and psychoeducation were given. Medication Change: Yes (start seroquel, DC Neurontin) Medical Record Reviewed: Yes Mental Status Examination - Cognitive Function Orientation: Person, Place, Situation, Time Memory: Intact Attention: WNL Concentration: Poor Association: WNL Fund of Knowledge: Poor - Mood Mood: Anxious - Affect Affect: Constricted - Speech Speech: Soft - Formal Thought Process Formal Thought Process: No Impairment - Suicidal Ideation Suicidal Ideation: No - Homicidal Ideation Homicidal Ideation: No Goal/Treatment Plan - Goal/Treatment Plan Need for Continued Stay: Discharge may exacerbated symptoms, Severe functional impairment Progress Toward Problem(s) and Goals/Treatment Plan: Anxiety disorder CBT Psychoeducation Supportive therapy, group therapy, individual therapy Discontinue Neurontin 100 mg by mouth 3 times a day Start Seroquel 50 mg PO QHS Alcohol use disorder severe CBT Psychoeducation Supportive therapy, individual therapy Use [place] for abstinence Alcohol withdrawal uncomplicated CBT Psychoeducation Supportive therapy, individual therapy Librium/Ativan when necessary Librium taper Folic acid/thiamine/multivitamin Opioid use disorder severe CBT Psychoeducation Supportive therapy, individual therapy Use [place] for abstinence Opioid withdrawal CBT Psychoeducation Supportive therapy, individual therapy Clonidine when necessary Methadone taper - Smoking Cessation Smoking Cessation Initiated: No
[2016-11-07] MEDS: Amoxicillin-Clav 500-125 mg Tab PO SCH ×2 (10:20→21:07)
[2016-11-07] MEDS ORDERED: Pneumococcal 23-Valent Vaccine IM ONE (11:18)
[2016-11-07 14:04] LABS: BASO % 0.5 % (0.0-2.0); EOS # 0.4 K/uL (0.0-0.7); EOS % 4.6 % (0.0-4.0); HEMATOCRIT 34.6 % (34.0-47.0); LYMPH # 2.4 K/uL (1.0-4.3); LYMPH % 27.4 % (20.0-40.0); MEAN CORPUSCULAR HEMOGLOBIN 29.3 pg (27.0-31.0); MEAN CORPUSCULAR HGB CONC 32.9 g/dL (33.0-37.0); MEAN PLATELET VOLUME 8.4 fL (7.2-11.7); MONO # 0.5 K/uL (0.0-0.8); MONO % 5.2 % (0.0-10.0); WHITE BLOOD COUNT 8.9 K/uL (4.8-10.8)
[2016-11-07 14:13] LABS: CHLORIDE 94 mmol/L (98-107); POTASSIUM 4.4 mmol/L (3.6-5.2); SODIUM 133 mmol/L (132-148)
[2016-11-07 14:15] LABS: ALB/GLOB RATIO 1.5 (1.0-2.1); ALKALINE PHOSPHATASE 49 U/L (38-126); AST/SGOT 47 U/L (14-36); BILIRUBIN,TOTAL 0.5 mg/dL (0.2-1.3); CARBON DIOXIDE 32 mmol/L (22-30); GFR AFRICAN-AMERICAN > 60; TOTAL PROTEIN 6.3 g/dL (6.3-8.3)
[2016-11-07 14:16] LABS: ALT/SGPT 57 U/L (9-52); BLOOD UREA NITROGEN 14 mg/dL (7-17); CALCIUM 8.6 mg/dl (8.6-10.4); GLUCOSE,RANDOM 79 mg/dL (65-105); MAGNESIUM 1.9 mg/dL (1.6-2.3); PHOSPHOROUS 3.9 mg/dL (2.5-4.5)
--- NOTE | 2016-11-07 19:02 | CP.PCM.PN ---
<Jad Love - Last Filed: 11/07/16 19:02> Objective - Vital Signs/Intake and Output Vital Signs (last 24 hours): Temp Pulse Resp BP Pulse Ox 98.5 F 70 19 111/72 98 11/07/16 08:06 11/07/16 15:56 11/07/16 08:06 11/07/16 15:56 11/06/16 16:00 - Medications Medications: Current Medications Amoxicillin/Clavulanate Potassium (Augmentin 500 Mg-125 Mg Tab) 1 tab PO Q12H [facility] Last Admin: 11/07/16 10:20 Dose: 1 tab Chlordiazepoxide (Librium) 25 mg PO BID [facility] PRN Reason: Taper Stop: 11/09/16 11:59 Last Admin: 11/07/16 17:07 Dose: 25 mg Clonidine HCl (Catapres) 0.1 mg PO TID [facility] Last Admin: 11/07/16 17:07 Dose: 0.1 mg Hydroxyzine HCl (Atarax) 50 mg PO TID [facility] Last Admin: 11/07/16 17:07 Dose: 50 mg Ibuprofen (Motrin Tab) 600 mg PO TID PRN PRN Reason: Pain, moderate (4-7) Last Admin: 11/07/16 13:08 Dose: 600 mg Lidocaine HCl (Lidocaine 2% Viscous) 15 ml PO Q6H PRN PRN Reason: toothache Last Admin: 11/07/16 10:20 Dose: 15 ml Methadone HCl (Methadone) 10 mg PO DAILY [facility] PRN Reason: Taper Stop: 11/09/16 09:59 Last Admin: 11/07/16 09:38 Dose: 10 mg Nicotine (Nicoderm Cq) 1 patch TD DAILY [facility] Last Admin: 11/07/16 09:39 Dose: 1 patch Pantoprazole Sodium (Protonix Ec Tab) 40 mg PO DAILY [facility] Last Admin: 11/07/16 09:38 Dose: 40 mg Quetiapine Fumarate (Seroquel) 100 mg PO HS [facility] Trazodone HCl (Desyrel) 50 mg PO HS PRN PRN Reason: Insomnia Last Admin: 11/06/16 22:56 Dose: 50 mg - Labs Labs: 11/07/16 13:54 11/07/16 13:54 <Onel Gaspar - Last Filed: 11/11/16 17:52> Subjective - Date & Time of Evaluation Date of Evaluation: 11/07/16 Time of Evaluation: 16:40 - Subjective Subjective: 51 year old female who was admitted for heroine overdose. ROS: Episode of nonbloody diarrhea on 11/06/16 but today soft bowel movement Left Lower Jaw Pain NO chest pain, NO palpitations, NO SOB/Cough/Wheezing, NO abdominal pain, NO n/v , NO burning/pain with urination, NO lightheadedness/dizziness, NO new changes in vision/eye pain, NO new changes in hearing/ear pain, NO paresthesias, NO edema HEENT: NCA, EOMI, PERRLA, NO pharyngeal erythema/exudate, (+) Left Submandibular Bulge mildly tender, Oral Mucosa and Nasal Turbinates are moist Cardio: NS1 and NS2, NO M/R/G Respiratory: CTA B/L, NO R/R/W GI: BSx4, Soft, NT, NO HSM, NO guarding/rebound tenderness Ext: NO edema, Pulses are strong and equal, Capillary Refill is 2 seconds Neuro: CN II throug XII are grossly intact Assessment and Plan: 1). Opiod Use Disorder Clonidine 0.1 mg PO TID Hydroxyzine 50 mg PO Q6H PRN Anxiety Methadone 15 mg PO 1x/day 2). Alcohol Use Disorder Librium 25 mg PO TID 3). Tobacco Use Disorder Nicotine Patch 1x/day 4). Elevated LFTs Monitor 5). Abnormal UA Repeat UA 6). HTN Clonidine as above for now 7). Possible Tooth Abscess Augmentin 875/125 mg PO Q12H Lidocaine 2% Viscous 15 mL Q6H PRN Tooth Pain Ibuprofen 600 mg PO TID PRN Moderate Pain She will need dental follow up upon discharge Onel Gaspar D.O. Objective - Vital Signs/Intake and Output Vital Signs (last 24 hours): Temp Pulse Resp BP Pulse Ox 97.6 F 73 18 120/80 98 11/09/16 09:27 11/09/16 09:27 11/09/16 09:27 11/09/16 09:27 11/06/16 16:00 - Labs Labs: 11/09/16 12:08 11/09/16 12:08
--- NOTE | 2016-11-08 19:11 | CP.PCM.PN ---
<Tri Viveros V - Last Filed: 11/08/16 19:40> Objective - Vital Signs/Intake and Output Vital Signs (last 24 hours): Temp Pulse Resp BP Pulse Ox 98.5 F 70 19 111/72 98 11/07/16 08:06 11/07/16 15:56 11/07/16 08:06 11/07/16 15:56 11/06/16 16:00 - Medications Medications: Current Medications Amoxicillin/Clavulanate Potassium (Augmentin 500 Mg-125 Mg Tab) 1 tab PO Q12H [facility] Last Admin: 11/07/16 21:07 Dose: 1 tab Chlordiazepoxide (Librium) 25 mg PO DAILY [facility] PRN Reason: Taper Stop: 11/09/16 11:59 Last Admin: 11/07/16 17:07 Dose: 25 mg Clonidine HCl (Catapres) 0.1 mg PO TID [facility] Last Admin: 11/07/16 17:07 Dose: 0.1 mg Hydroxyzine HCl (Atarax) 50 mg PO TID [facility] Last Admin: 11/07/16 17:07 Dose: 50 mg Ibuprofen (Motrin Tab) 600 mg PO TID PRN PRN Reason: Pain, moderate (4-7) Last Admin: 11/08/16 00:33 Dose: 600 mg Lidocaine HCl (Lidocaine 2% Viscous) 15 ml PO Q6H PRN PRN Reason: toothache Last Admin: 11/07/16 10:20 Dose: 15 ml Methadone HCl (Methadone) 5 mg PO DAILY [facility] PRN Reason: Taper Stop: 11/09/16 09:59 Last Admin: 11/07/16 09:38 Dose: 10 mg Nicotine (Nicoderm Cq) 1 patch TD DAILY [facility] Last Admin: 11/07/16 09:39 Dose: 1 patch Pantoprazole Sodium (Protonix Ec Tab) 40 mg PO DAILY [facility] Last Admin: 11/07/16 09:38 Dose: 40 mg Quetiapine Fumarate (Seroquel) 100 mg PO HS [facility] Last Admin: 11/07/16 21:07 Dose: 100 mg Trazodone HCl (Desyrel) 50 mg PO HS PRN PRN Reason: Insomnia Last Admin: 11/07/16 21:39 Dose: 50 mg - Labs Labs: 11/07/16 13:54 05/17/17 13:54 Attending/Attestation - Attestation I have personally seen and examined this patient.: Yes I have fully participated in the care of the patient.: Yes I have reviewed all pertinent clinical information, including history, physical exam and plan: Yes Notes (Text): Patient seen, examined, and case discussed with day-time resident. Patient seen this morning during rounds. Patient denies acute complaints. Patient reports she is pain controlled with the Lidocaine viscous and tolerating antibiotic well. Discussed with psych, from their standpoint patient is a possible discharge tomorrow. Assessment/Plan 1) Alcohol Use Disorder and Withdrawal Serum alcohol, 521 Librium taper (active since 11/05/16) Seizure precautions Aspiration/Fall precautions Alcohol W/D assessments Q1H Neuro Check Q4H Zofran 4mg IV Q6H PRN Psych, Dr. Boo, consulted. Help appreciated. 2) Opioid Use Disorder and Withdrawal Psych, Dr. Boo, consulted. Help appreciated. Methadone taper as per psych 3) Hypertension Clonidine 0.1mg PO Bid TID 4) Transaminitis Secondary to alcohol use Downtrending Ordered for hepatitis panel Patient denies acute abdominal pain 5) Abnormal UA U/A: positive for nitrates, bacteria Patient asymptomatic for urinary tract infection 6) Dental Abscess Augmentin 500mg-125mg 1 tab PO Q 12hours (active since 11/07/16) Florastor 250mg PO bid Lidocaine 15ml PO Q 6hour PRN toothache Discussed extensively with patient at bedside this morning, patient is aware she must following with her dentist for strongly suspected dental abscess. Patient will need 10 day prescription total Abx coverage until she is evaluated by a dentist. <Jad Love - Last Filed: 11/13/16 01:35> Subjective - Date & Time of Evaluation Date of Evaluation: 11/08/16 Time of Evaluation: 07:22 - Subjective Subjective: Pt seen and examined. Pt reports that she is feeling well today. She reports that her tooth infection has improved. Pt denies fever, chills, chest pain, shortness of breath, nausea, and vomiting. Objective - Vital Signs/Intake and Output Vital Signs (last 24 hours): Temp Pulse Resp BP Pulse Ox 98.5 F 70 19 111/72 98 11/07/16 08:06 11/07/16 15:56 11/07/16 08:06 11/07/16 15:56 11/06/16 16:00 - Medications Medications: Current Medications Amoxicillin/Clavulanate Potassium (Augmentin 500 Mg-125 Mg Tab) 1 tab PO Q12H [facility] Last Admin: 11/07/16 21:07 Dose: 1 tab Chlordiazepoxide (Librium) 25 mg PO DAILY [facility] PRN Reason: Taper Stop: 11/09/16 11:59 Last Admin: 11/07/16 17:07 Dose: 25 mg Clonidine HCl (Catapres) 0.1 mg PO TID [facility] Last Admin: 11/07/16 17:07 Dose: 0.1 mg Hydroxyzine HCl (Atarax) 50 mg PO TID [facility] Last Admin: 11/07/16 17:07 Dose: 50 mg Ibuprofen (Motrin Tab) 600 mg PO TID PRN PRN Reason: Pain, moderate (4-7) Last Admin: 11/08/16 00:33 Dose: 600 mg Lidocaine HCl (Lidocaine 2% Viscous) 15 ml PO Q6H PRN PRN Reason: toothache Last Admin: 11/07/16 10:20 Dose: 15 ml Methadone HCl (Methadone) 5 mg PO DAILY [facility] PRN Reason: Taper Stop: 11/09/16 09:59 Last Admin: 11/07/16 09:38 Dose: 10 mg Nicotine (Nicoderm Cq) 1 patch TD DAILY [facility] Last Admin: 11/07/16 09:39 Dose: 1 patch Pantoprazole Sodium (Protonix Ec Tab) 40 mg PO DAILY [facility] Last Admin: 11/07/16 09:38 Dose: 40 mg Quetiapine Fumarate (Seroquel) 100 mg PO HS [facility] Last Admin: 11/07/16 21:07 Dose: 100 mg Trazodone HCl (Desyrel) 50 mg PO HS PRN PRN Reason: Insomnia Last Admin: 11/07/16 21:39 Dose: 50 mg - Labs Labs: 11/07/16 13:54 11/07/16 13:54 - Constitutional Appears: No Acute Distress, Unkempt - Head Exam Head Exam: ATRAUMATIC, NORMOCEPHALIC - Eye Exam Eye Exam: EOMI - ENT Exam ENT Exam: Mucous Membranes Moist. absent: Mucous Membranes Dry - Neck Exam Neck Exam: Full ROM - Respiratory Exam Respiratory Exam: Clear to Ausculation Bilateral. absent: Rales, Rhonchi, Wheezes - Cardiovascular Exam Cardiovascular Exam: +S1, +S2. absent: Gallop, Rubs - GI/Abdominal Exam GI & Abdominal Exam: Soft. absent: Distended, Guarding - Extremities Exam Extremities Exam: Full ROM. absent: Pedal Edema - Neurological Exam Neurological Exam: Alert, Awake, Oriented x3 - Psychiatric Exam Psychiatric exam: Normal Affect, Normal Mood - Skin Skin Exam: Normal Color, Warm Assessment and Plan - Assessment and Plan (Free Text) Assessment: Pt transferred to . Alcohol Use Disorder and Withdrawal Serum alcohol, 521 Librium taper Ativan 1 mg IV q4h prn for withdrawal symptoms Seizure precautions Aspiration/Fall precautions Alcohol W/D assessments Q1H Neuro Check Q4H Banana Bag IVF 100cc/hr Zofran 4mg IV Q6H PRN Management as per psych Opioid Use Disorder and Withdrawal Psych, Dr. Boo, consulted. Help appreciated. Methadone taper as per psych Tooth Abscess: Augmentin 875/125 1 tab po BID HTN: Clonidine 0.1 mg po tid Transaminitis Secondary to alcohol use AST/ALT 121/94 Monitor Abnormal UA U/A: positive for nitrates, bacteria Prophylaxis DVT: SCDs, Heparin 5000 units Q12H GI: Protonix 40mg IV daily Nicotine patch
[2016-11-08] MEDS: Amoxicillin-Clav 500-125 mg Tab PO SCH (21:17)
--- NOTE | 2016-11-08 22:00 | PCM.PYCHPN ---
Psychiatric Progress Note - Psychiatric Progress Note Patient seen today, length of contact: 16 min Patient Chief Complaint: I am feeling much better Problems Identified/Issues Discussed: Patient seen and evaluated, chart reviewed and discussed with the nurse. Patient reports improvement in her mood and reports improvement in the withdrawal symptoms. She wants to go to methadone program. However she denies any suicidal ideation or homicidal ideation. She denies any auditory or visual hallucinations or any psychotic symptoms. She is taking medication and denied any side effects Supportive therapy and psychoeducation were given. Medication Change: Yes (increase seroquel) Medical Record Reviewed: Yes Mental Status Examination - Cognitive Function Orientation: Person, Place, Situation, Time Memory: Intact Attention: WNL Concentration: Poor Association: WNL Fund of Knowledge: WNL - Mood Mood: Anxious - Affect Affect: Constricted - Speech Speech: Soft - Formal Thought Process Formal Thought Process: No Impairment - Suicidal Ideation Suicidal Ideation: No - Homicidal Ideation Homicidal Ideation: No Goal/Treatment Plan - Goal/Treatment Plan Need for Continued Stay: Discharge may exacerbated symptoms, Severe functional impairment Progress Toward Problem(s) and Goals/Treatment Plan: Anxiety disorder CBT Psychoeducation Supportive therapy, group therapy, individual therapy Increase Seroquel 100 mg PO QHS Alcohol use disorder severe CBT Psychoeducation Supportive therapy, individual therapy Use [place] for abstinence Alcohol withdrawal uncomplicated CBT Psychoeducation Supportive therapy, individual therapy Librium/Ativan when necessary Librium taper Folic acid/thiamine/multivitamin Opioid use disorder severe CBT Psychoeducation Supportive therapy, individual therapy Use [place] for abstinence Opioid withdrawal CBT Psychoeducation Supportive therapy, individual therapy Clonidine when necessary Methadone taper - Smoking Cessation Smoking Cessation Initiated: No
[2016-11-09 09:27] VITALS: BP 120/80; PULSE 73; RESP 18; TEMP 97.6
--- NOTE | 2016-11-09 09:45 | PCM.PYCHDC ---
Mental Status Examination - Mental Status Examination Orientation: Person, Place, Situation, Time Memory: Intact Mood: Neutral Affect: Constricted Speech: Soft Attention: WNL Concentration: WNL Association: WNL Fund of Knowledge: WNL Formal Thought Process: No Impairment Description of patient's judgement and insight: Good, fair Psychotic Thoughts and Behaviors: denies any AVH Suicidal Ideation: No Current Homicidal Ideation?: No Discharge Summary - Discharge Note Reason for Hospitalization: This is a 51-year-old female who is lives with her boyfriend and unemployed with a long history of alcohol dependence, opioid dependence and anxiety disorder was admitted in the ICU because of a suspected overdose. Today patient was consulted because of history of alcohol and opiate overdose. Patient states a long history of drinking and abusing opiate pain medications. Since past few months she is drinking heavily and sniffing increasing amount of heroin. The patient reports of drinking 5-6 shots of vodka and 4-5 24oz beers, on a daily basis. Yesterday she consumed 4 pints of vodka, with 5 24oz beers, and abused 6 bags of heroin, became unconscious, boyfriend called the ambulance and patient was escorted to the hospital. Patient was given naloxone and was admitted in the ICU. Today patient reports of withdrawal symptoms including shakes, sweating, anxiety and headaches. Patient reports anxiety and irritable mood but denies any feelings of hopelessness or helplessness. She reports that she overdosed accidentally on heroin and denies any suicidal ideation or any attempt. She denies any auditory or visual hallucinations or any psychotic symptoms. She denies any other substance abuse. Consultations:: List each consultation separately and include: 1. Reason for request. 2. Findings. 3. Follow-up Summary of Hospital Course include:: 1. Description of specific treatment plan utilized for patients during their course of treatmen. 2. Summarize the time- course for resolution of acute symptoms and/or regressed behaviors. 3. Describe issues identified and worked on during hospitalization. 4. Describe medication utilized. 5. Describe medical problems identified and treated. 6. Reassessment of suicide risk Summary of Hospital Course: During the course of her stay, patient (pt) started progressively improving and she no longer remained anxious, depressed and suicidal. Her mood was getting better and she started attending groups and meetings and started socializing. The doses of her medications were maximized and patient denied any feelings of hopelessness, helplessness, and worthlessness, denied any problem with the sleep or appetite, denied suicidal ideation or homicidal ideation. Pt denied any auditory or visual hallucinations. Patient reported improvement in her mood and tolerated these medications very well and denied any side effects. - Final Diagnosis (DSM 5) Condition upon Discharge: FAIR DSM 5: Alcohol use disorder severe Alcohol withdrawal uncomplicated Opioid use disorder severe Opioid withdrawal Anxiety disorder Disposition: HOME/ ROUTINE Follow-up Treatment Plan: Education: Pt was educated and counseled about the risks and benefits of taking and not taking medications. Pt was educated and counseled about the risks of drinking and abusing drugs. Pt was educated and counseled to go to the ER or call 911 if pt develop suicidal ideation or homicidal ideation, worsening of symptoms or severe side effects of the meds. Prescriptions/Medication Reconciliation: QUEtiapine [Seroquel] 100 mg PO HS #30 tab traZODone [Desyrel] 50 mg PO HS #30 tab - Smoking Cessation Smoking Cessation Medication prescribed: No - Antipsychotic Medications Pt discharged on 2 or more routine antipsychotic medications: No
[2016-11-09] MEDS: Pantoprazole 40 mg EC Tab PO SCH (11:27)
[2016-11-09] MEDS: Amoxicillin-Clav 500-125 mg Tab PO SCH (11:28)
[2016-11-09 12:23] LABS: BASO % 0.3 % (0.0-2.0); EOS # 0.2 K/uL (0.0-0.7); EOS % 2.1 % (0.0-4.0); HEMATOCRIT 41.3 % (34.0-47.0); LYMPH # 2.6 K/uL (1.0-4.3); LYMPH % 26.8 % (20.0-40.0); MEAN CELL VOLUME 89.9 fL (81.0-99.0); MEAN CORPUSCULAR HEMOGLOBIN 29.7 pg (27.0-31.0); MEAN CORPUSCULAR HGB CONC 33.1 g/dL (33.0-37.0); MEAN PLATELET VOLUME 9.4 fL (7.2-11.7); MONO # 0.7 K/uL (0.0-0.8); MONO % 7.1 % (0.0-10.0); RED CELL DISTRIBUTION WIDTH 17.3 % (11.5-14.5); WHITE BLOOD COUNT 9.8 K/uL (4.8-10.8)
[2016-11-09 12:47] LABS: CHLORIDE 93 mmol/L (98-107); SODIUM 135 mmol/L (132-148)
[2016-11-09 12:48] LABS: POTASSIUM 4.6 mmol/L (3.6-5.2)
[2016-11-09 12:50] LABS: ALB/GLOB RATIO 1.3 (1.0-2.1); ALKALINE PHOSPHATASE 57 U/L (38-126); ALT/SGPT 52 U/L (9-52); AST/SGOT 42 U/L (14-36); BILIRUBIN,TOTAL 0.5 mg/dL (0.2-1.3); BLOOD UREA NITROGEN 23 mg/dL (7-17); CARBON DIOXIDE 32 mmol/L (22-30); GFR AFRICAN-AMERICAN > 60; GLUCOSE,RANDOM 103 mg/dL (65-105); TOTAL PROTEIN 7.7 g/dL (6.3-8.3)
[2016-11-09 12:51] LABS: CALCIUM 8.9 mg/dl (8.6-10.4); MAGNESIUM 2.2 mg/dL (1.6-2.3); PHOSPHOROUS 4.1 mg/dL (2.5-4.5)
--- NOTE | 2016-11-09 17:55 | CP.PCM.PN ---
<Jad Love - Last Filed: 11/13/16 10:50> Subjective - Date & Time of Evaluation Date of Evaluation: 11/09/16 Time of Evaluation: 08:23 - Subjective Subjective: Pt seen and examined. Pt reports that she is feeling well today. Pt reports tooth pain has improved. Pt denies fever, chills, chest pain, shortness of breath, nausea, and vomiting. Objective - Vital Signs/Intake and Output Vital Signs (last 24 hours): Temp Pulse Resp BP Pulse Ox 97.6 F 73 18 120/80 98 11/09/16 09:27 11/09/16 09:27 11/09/16 09:27 11/09/16 09:27 11/06/16 16:00 - Labs Labs: 11/09/16 12:08 11/09/16 12:08 - Constitutional Appears: No Acute Distress - Head Exam Head Exam: ATRAUMATIC, NORMOCEPHALIC - Eye Exam Eye Exam: EOMI, PERRL - ENT Exam ENT Exam: Mucous Membranes Moist. absent: Mucous Membranes Dry - Neck Exam Neck Exam: Full ROM. absent: Lymphadenopathy - Respiratory Exam Respiratory Exam: Clear to Ausculation Bilateral. absent: Rales, Rhonchi, Wheezes - Cardiovascular Exam Cardiovascular Exam: +S1, +S2. absent: Gallop, Rubs - GI/Abdominal Exam GI & Abdominal Exam: Soft, Normal Bowel Sounds. absent: Distended, Tenderness - Extremities Exam Extremities Exam: Full ROM. absent: Pedal Edema - Neurological Exam Neurological Exam: Alert, Awake, Oriented x3 - Psychiatric Exam Psychiatric exam: Normal Affect, Normal Mood - Skin Skin Exam: Normal Color, Warm Assessment and Plan - Assessment and Plan (Free Text) Assessment: Assessment: Plan is for discharge today as per psych. Alcohol Use Disorder and Withdrawal Serum alcohol, 521 Librium taper Ativan 1 mg IV q4h prn for withdrawal symptoms Seizure precautions Aspiration/Fall precautions Alcohol W/D assessments Q1H Neuro Check Q4H Banana Bag IVF 100cc/hr Zofran 4mg IV Q6H PRN Management as per psych Opioid Use Disorder and Withdrawal Psych, Dr. Boo, consulted. Help appreciated. Methadone taper as per psych Tooth Abscess: Augmentin 875/125 1 tab po BID HTN: Clonidine 0.1 mg po tid Transaminitis Secondary to alcohol use AST/ALT 121/94 Monitor Abnormal UA U/A: positive for nitrates, bacteria Prophylaxis DVT: SCDs, Heparin 5000 units Q12H GI: Protonix 40mg IV daily Nicotine patch <Yanely Abbasit - Last Filed: 12/16/16 11:25> Objective - Vital Signs/Intake and Output Vital Signs (last 24 hours): Temp Pulse Resp BP Pulse Ox 97.6 F 73 18 120/80 98 11/09/16 09:27 11/09/16 09:27 11/09/16 09:27 11/09/16 09:27 11/06/16 16:00 - Labs Labs: 11/09/16 12:08 11/09/16 12:08 Attending/Attestation - Attestation I have personally seen and examined this patient.: Yes I have fully participated in the care of the patient.: Yes I have reviewed all pertinent clinical information, including history, physical exam and plan: Yes Notes (Text): Patient seen and examined with the resident. Agree with the resident's evaluation, assessment and plan. Alcohol Use Disorder and Withdrawal Opioid Use Disorder and Withdrawal Tooth Abscess: Augmentin 875/125 mg po bid Follow up with dentist strongly recommended Patient agrees to do so as outpatient. HTN:
== END 2016-11-09 13:20 | disposition home or self-care (01) | DRG 744 ==
LOC: C.ER 20:34 → EDBD 20:34 → C.9E 11-05 00:05 → C.9I 11-05 07:03 → OBSVTOIN 11-06 16:18 → C.5E 11-06 18:29
PROVIDERS: ADMIT Psychiatry & Neurology Psychiatry; ATTEND Psychiatry & Neurology Psychiatry
PROC: HZ2ZZZZ Detoxification Services for Substance Abuse Treatment (ICD-10-PCS; principal; 2016-11-06)
PROC: HZ42ZZZ Group Counseling for Substance Abuse Treatment, Cognitive-Behavioral (ICD-10-PCS; 2016-11-06)
PROC: HZ46ZZZ Group Counseling for Substance Abuse Treatment, Psychoeducation (ICD-10-PCS; 2016-11-06)
PROC: HZ52ZZZ Individual Psychotherapy for Substance Abuse Treatment, Cognitive-Behavioral (ICD-10-PCS; 2016-11-06)
PROC: HZ59ZZZ Individual Psychotherapy for Substance Abuse Treatment, Supportive (ICD-10-PCS; 2016-11-06)
PROC: HZ56ZZZ Individual Psychotherapy for Substance Abuse Treatment, Psychoeducation (ICD-10-PCS; 2016-11-06)
DX: F10.220 Alcohol dependence with intoxication, uncomplicated (principal); N39.0 Urinary tract infection, site not specified; I10 Essential (primary) hypertension; F10.230 Alcohol dependence with withdrawal, uncomplicated; F11.23 Opioid dependence with withdrawal; Y90.8 Blood alcohol level of 240 mg/100 ml or more; F17.210 Nicotine dependence, cigarettes, uncomplicated; F41.9 Anxiety disorder, unspecified; R74.0 Nonspecific elevation of levels of transaminase and lactic acid dehydrogenase [LDH]; K04.7 Periapical abscess without sinus

== ENCOUNTER 2016-12-02 19:09 | Observation (INO) | payer MEDICAID ==
[2016-12-02] MEDS ORDERED: Sodium Chloride 0.9% 1,000 ML IV ONE (19:28)
[2016-12-02 19:49] LABS: BASO # 0.1 K/uL (0.0-0.2); HEMATOCRIT 48.9 % (41.0-65.0); LYMPH # 3.9 K/uL (1.6-7.4); LYMPH % 25.7 % (40.0-70.0); MEAN CELL VOLUME 89.8 fL (88.0-120.0); MEAN CORPUSCULAR HEMOGLOBIN 29.1 pg (31.0-37.0); MEAN CORPUSCULAR HGB CONC 32.4 g/dL (30.0-36.0); MEAN PLATELET VOLUME 7.6 fL (7.2-11.7); MONO # 0.9 K/uL (0.0-0.8); MONO % 5.7 % (0.0-10.0); WHITE BLOOD COUNT 15.1 K/uL (9.0-34.0)
--- NOTE | 2016-12-02 19:53 | C.PDOC ---
History Of Present Illness A Cinthia Serrato brought in by EMS and [facility] for ETOH intoxication. Pt admits to drinking and abusing cocaine. Pt denies suicidal or homicidal ideation or any physical complaints at this time. Time Seen by Provider: 12/02/16 19:31 Chief Complaint (Nursing): Substance Abuse History Per: Patient History/Exam Limitations: intoxication Onset/Duration Of Symptoms: Hrs Current Symptoms Are (Timing): Still Present Suicide/Self Injury Attempted (Context): None Modifying Factor(s): Alcohol, Cocaine Severity: Mild Associated Symptoms: denies: Suicidal Thoughts, Suicidal Plan Involuntary Hold By: None Recent travel outside of the [place]: No Additional History Per: Patient Past Medical History Reviewed: Historical Data, Nursing Documentation, Vital Signs Vital Signs: Last Vital Signs Temp 98.6 F 12/03/16 04:53 Pulse 99 H 12/03/16 04:53 Resp 16 12/03/16 04:53 BP 157/88 H 12/03/16 04:53 Pulse Ox 98 12/03/16 04:53 Family History: States: Unknown Family Hx - Social History Hx Alcohol Use: Yes Hx Substance Use: Yes Review Of Systems Except As Marked, All Systems Reviewed And Found Negative. Constitutional: Negative for: Fever, Chills Gastrointestinal: Negative for: Nausea, Vomiting, Abdominal Pain, Diarrhea Psych: Negative for: Suicidal ideation, Other (Homicidal ideation) Physical Exam - Physical Exam Skin: Warm, Dry Head: Atraumatic, Normacephalic Eye(s): bilateral: Normal Inspection Oral Mucosa: Moist Throat: Normal, No Exudate Neck: Supple Cardiovascular: Rhythm Regular, No Murmur Respiratory: Normal Breath Sounds, No Rales, No Rhonchi, No Wheezing Gastrointestinal/Abdominal: Soft, No Tenderness Extremity: Normal ROM, No Deformity Neurological/Psych: Oriented x3, Normal Speech, Other (Awake and alert, no focal deficit) ED Course And Treatment - Laboratory Results Result Diagrams: 12/02/16 19:45 12/02/16 19:45 O2 Sat by Pulse Oximetry: 96 (RA) Pulse Ox Interpretation: Normal Medical Decision Making Medical Decision Making: Impression: cinthia Serrato brought in for ETOH intoxication [employer] Plans: -ED Obs -Reassess ED OBSERVATION Date of observation admission: 12/02/16 Time of observation admission: 19:54 - Observation admission statement Patient is being placed in observation because:: ETOH intoxicated - Goals of Observation Goals of observation are:: Sobriety Disposition Counseled Patient/Family Regarding: Diagnosis - Disposition Disposition: HOME/ ROUTINE Disposition Time: 05:34 Condition: STABLE - POA Present On Arrival: None - Clinical Impression Clinical Impression: Drug abuse, Alcohol intoxication - Scribe Statement The provider has reviewed the documentation as recorded by the Scribe Shiva [email or web address] All medical record entries made by the Ananthibmerlin were at my direction and personally dictated by me. I have reviewed the chart and agree that the record accurately reflects my personal performance of the history, physical exam, medical decision making, and the department course for this patient. I have also personally directed, reviewed, and agree with the discharge instructions and disposition.
[2016-12-02 19:57] LABS: CHLORIDE 96 mmol/L (98-107); POTASSIUM 4.8 mmol/L (3.6-5.2); SODIUM 141 mmol/L (132-148)
[2016-12-02 19:59] LABS: ALB/GLOB RATIO 1.4 (1.0-2.1); ALKALINE PHOSPHATASE 73 U/L (38-126); AST/SGOT 57 U/L (14-36); BILIRUBIN,TOTAL 1.2 mg/dL (0.0-5.7); CARBON DIOXIDE 28 mmol/L (22-30); TOTAL PROTEIN 8.4 g/dL (6.3-8.3)
[2016-12-02 20:00] LABS: ALT/SGPT 24 U/L (9-52); BLOOD UREA NITROGEN 10 mg/dL (7-17); CALCIUM 8.8 mg/dl (8.6-10.4); GLUCOSE,RANDOM 126 mg/dL (65-105)
[2016-12-02 20:14] LABS: ALCOHOL SERUM 421 mg/dl (0-10)
[2016-12-02] MEDS ORDERED: Sodium Chloride 0.9% 1,000 ML ONE (20:17)
[2016-12-02 20:31] LABS: RBC URINE 10 /hpf (0-3); URINE BACTERIA FEW (<OCC); URINE BILIRUBIN NEGATIVE (NEGATIVE); URINE BLOOD 1+ (NEGATIVE); URINE COLOR Straw (YELLOW); URINE GLUCOSE (UA) NORMAL (Normal); URINE KETONE NEGATIVE (NEGATIVE); URINE LEUKOCYTE ESTERASE TRACE Leu/uL (Negative); URINE PROTEIN 1+ mg/dL (NEGATIVE); URINE UROBILINOGEN NORMAL mg/dL (0.2-1.0); WBC URINE 1 /hpf (0-5)
[2016-12-02] MEDS ORDERED: Multivitamin (MVI) 10 ML, Thiamine 100 MG, Folic Acid 1 MG in Sodium Chloride 0.9% 1,00... IV ONE (21:53)
[2016-12-03 01:19] VITALS: RESP 16
[2016-12-03 04:54] VITALS: BP 157/88; PULSE 99; TEMP 98.6
[2016-12-03 05:34] VITALS: O2SAT 96
--- NOTE | 2016-12-03 18:28 | CARD ---
APPROVED REPORT EKG Measurement Heart [id number] <Conclusion> Sinus tachycardia Nonspecific ST abnormality Abnormal ECG
== END 2016-12-03 05:33 | disposition home or self-care (01) ==
LOC: C.ER 19:09 → MERGE 21:16 → C.9OBSV 21:16
PROVIDERS: ADMIT Emergency Medicine; ATTEND Emergency Medicine
DX: F10.120 Alcohol abuse with intoxication, uncomplicated (principal); Y90.8 Blood alcohol level of 240 mg/100 ml or more
CPT/HCPCS: 80053; 80320; 80324; 80329; 80345; 80346; 80349; 80353; 80358; 80361; 81001; 83992; 84484; 84703; 85025; 93005; 96360; 96361; 99284; G0378; J7040